=== PATIENT | male | born 1980 | race Caucasian/White ===

== ENCOUNTER 2023-06-02 15:51 | Emergency (ER) | payer MEDICAID, SELFPAY ==
[2023-06-02 16:02] VITALS: BP 132/70; PULSE 74; O2SAT 97
[2023-06-02 16:10] VITALS: BP 104/48; PULSE 62; RESP 14; TEMP 35.9; O2SAT 95; BMI 41.1
--- NOTE | 2023-06-02 17:26 | ED_ITS ---
HPI - General Adult General Chief complaint: Back Pain/Injury Stated complaint: LOWER BACK PAIN AND KNEE PAIN Time Seen by Provider: 06/02/23 17:01 Source: patient Mode of arrival: EMS Limitations: no limitations History of Present Illness HPI narrative: patient homeless unable to sleep for last 4 days was found sitting on the sidewalk on the side of the road when EMS came complaining of back pain knee pain repeatedly nodding off with pinpoint pupil patient denies any substance abuse Related Data Allergies Allergy/AdvReac Type Severity Reaction Status Date / Time No Known Allergies Allergy Verified 06/02/23 17:51 Review of Systems Review of Systems: Yes all other systems are reviewed and are negative [facility] Social History Social History Advance Directives: No Advance Directives Information Provided: No Physical Exam ED Vital Signs: Vital Signs - 24 hr 06/02/23 16:10 06/02/23 20:26 06/02/23 23:57 Temperature 96.7 F L 98.7 F Pulse Rate 62 71 Respiratory Rate 14 19 18 Blood Pressure 104/48 L 113/60 Pulse Oximetry 95 96 Oxygen Delivery Method Room Air Room Air BMI result Body Mass Index 41.1 Appearance: Alert. Oriented X3. No acute distress. Eyes: PERRLA, No Nystagmus ENT: Pharynx normal. Oral Mucosa moist Neck: Normal inspection. Neck supple. CVS: Normal heart rate and rhythm. Pulses normal. Respiratory: No respiratory distress. Equal air entry bilateral, no wheezing/rales/rhonchi Abdomen: Soft and nontender. Bowel sounds are present, no mass palpable, no CVA tenderness Skin: Skin warm and dry. Normal skin color. Normal skin turgor. Extremities: No lower extremity edema. No calf tenderness Neuro: Oriented X 3. No motor deficit. No sensory deficit.No cerebellar signs , cranial nerves II-XII intact Medical Decision Making Medical Decision Making MDM Narrative: Patient medically stable slept for few hours at food in the ER, patient home/are Discharge Plan Discharge Clinical Impression: Homeless Patient Disposition: Home, Self-Care Instructions: Weakness (ED) Additional Instructions: drink plenty of fluids eat well Interventions: ED Discharge Assessment Last Done: 06/03/23 00:40 Discharge Date/Time: 06/03/23 00:41
[2023-06-02 20:26] VITALS: BP 113/60; PULSE 71; RESP 19; TEMP 37.1; O2SAT 96
--- OUTSIDE RECORDS SUMMARY | 2023-06-02 20:39 | XMS_ITS | Continuity of Care Document ---
Author Name Unknown Organization [facility] Address [address] [place] [address]- Care Team Providers Care Wheel Inspector Name Role Phone Not on Staff, PCP Primary Care Physician Unavail able Encounter [facility] Date(s): 05/22/23 - 05/22/[address] [address]- Discharge Disposition: A-D/C Home Attending Physician: Mason David MD Admitting Physician: Mason David MD Referring Physician: Not on Staff, Referring MD Allergies, Adverse Reactions, Alerts No Known Allergies Medications gabapentin 400 mg oral capsule 400 mg, 1, capsule, By Mouth, 3 times a day, # 15 capsule, Refills 0, Maintenance, 05/20/23 12:28:00 EDT, Partial fill upon patient request if the prescription is for a schedule II opioid drug. Start Date: 05/20/23 Status: Ordered gabapentin 400 mg oral capsule 400 mg, 1, capsule, By Mouth, 3 times a day, # 42 capsule, Refills 0, Tot. Refills 0, Maintenance, 05/20/23 17:05:00 EDT, Print Requisition, Partial fill upon patient request if the prescription is for a schedule II opioid drug. Start Date: 05/20/23 Stop Date: 06/03/23 Status: Ordered Methadone = 110 mg, Pt gets this at [facility], [facility], 0 Refills, Maintenance, 05/20/23 12:25:00EDT, Partial fill upon patient request if the prescription is for a schedule II opioid drug. Start Date: 05/20/23 Status: Ordered Trileptal 300 mg oral tablet 300 mg, 1, tablet, By Mouth, 2 times a day, # 60 tablet, Refills 5, Maintenance, 05/20/23 12:27:00 EDT, Partial fill upon patient request if the prescription is for a schedule II opioid drug. Start Date: 05/20/23 Status: Ordered Valium 10 mg oral tablet 10 mg, 1, tablet, By Mouth, 2 times a day, PRN, for 3 days, # 6 tablet, Refills 0, Tot. Refills 0, Acute 05/23/23 17:11:00 EDT, for anxiety, 05/20/23 17:11:00 EDT, Print Requisition, Partial fill upon patient request if the prescription is for a sched... Start Date: 05/20/23 Stop Date: 05/23/23 Status: Ordered Wellbutrin SR 150 mg/12 hours oral tablet, extended release 1 tablet = 150 mg, By Mouth, Daily, take with 300 mg wellbtrin, # 180 tablet, 0 Refills, Maintenance, 05/20/23 12:27:00 EDT, ER Tablet, Partial fill upon patient request if the prescription is for a schedule II opioid drug. Start Date: 05/20/23 Status: Ordered Wellbutrin XL 300 mg/24 hours oral tablet, extended release 1 tablet = 300 mg, By Mouth, Every 24 hours, take with 150 mg wellbutrin, 0 Refills, Maintenance, 05/20/23 12:26:00 EDT, Partial fill upon patient request if the prescription is for a schedule II opioid drug. Start Date: 05/20/23 Status: Ordered Problem List Condition Confirmation Course Effective Dates Status Health St atus Informant Obese class I Confirmed Active Vital Signs Most recent to oldest [Reference Range]: 1 2 Height 168 cm (05/22/23 4:07 AM) 168 cm (05/22/23 4:04 AM) Weight 90.5 kg (05/22/23 4:07 AM) 90.5 kg (05/22/23 4:04 AM) Oxygen Saturation [94-100 %] 99 % (05/22/23 11:22 AM) 97 % (05/22/23 4:04 AM) Pulse Rate [55-90 bpm] 73 bpm (05/22/23 11:22 AM) 73 bpm (05/22/23 4:04 AM) Body Mass Index [18.5-24.99 kg/m2] 32.06 kg/m2 *>HHI* (05/22/23 4:04 AM) Blood Pressure [90-138/55-84 mm Hg] 143/ 87mm Hg *H* (05/22/23 11:22 AM) 111/77mm Hg (05/22/23 4:04 AM) Respiratory Rate [16-30 br/min] 24 br/mi n (05/22/23 11:22 AM) 20 br/min (05/22/23 4:04 AM) Temperature [96.8-100.4 DegF] 97.3 DegF (05/22/23 11:22 AM) 98.8 DegF (05/22/23 4:04 AM) Mode of Delivery (Oxygen) Room air (05/22/23 11:22 AM) Room air (05/22/23 4:04 AM) Blood pressure sites Arm, left (05/22/23:22 AM) Arm, left (05/22/23 4:04 AM) Temperature Route Temporal (05/22/23 11:22 AM) Temporal (05/22/23 4:04 AM) Dry Weight 90.5 kg (05/22/23 4:07 AM) 90.5 kg (05/22/23 4:04 AM) Dry Weight Obtained Via Patient/family s tated (05/22/23 4:04 AM) Note * Mason David MD: PERFORM, SIGN, VERIFY Event Display: Patient Education Handout Authored Date: [id number] * Mason David MD: PERFORM Event Display: Patient Education Leaflets Authored Date: [id number] Degenerative Disk Disease ?? [id number] Degenerative Disk Disease Spinal disks are gel-filled cushions between the bones, or vertebrae, of the spine. The disks act like shock absorbers. Over time, the disks may break down. This is called degenerative disk disease. This condition can affect the neck or back. It is one of the most common causes of low back pain. The pain often remains localized to the lower back or neck. Muscle spasm is often present and adds tothe pain. Disk degeneration is a natural part of aging. But it is not always painful. It may also occur as a result of repeated minor injuries from daily activities, sports, or accidents. It may also run in families. It may lead to osteoarthritis of the spine. Back pain related to disk disease may come and go. Or it may become chronic and last for months or years. The disk may bulge or rupture. This is called a slipped disk or herniated disk. That can put pressure on a nearby spinal nerve and cause neck or back pain that spreads down one arm or leg. X-rays, CT scan, or an MRI scan may help to diagnose this condition. For acute pain, treatment includes anti-inflammatory medicines, muscle relaxants, rest, ice, or heat. Strong prescription pain medicines, called opioids, may be needed for short-term treatment if pain suddenly gets worse. Opioid medicines can be addictive. So they are not advised for long-term pain management. Non-addictive types of medicines are preferred. Surgery is generally not used to treat this condition unless there is a complication. Home care ??? For neck pain:??Use a comfortable pillow that supports the head and keeps the spine in a neutral position. Your head should not be tilted forward or backward. ??? For back pain: Don't sit for long periods of time. This puts more stress on the lower back than standing or walking.??Starting a regular exercise program to strengthen the supporting muscles of the spine will make it easier to live with degenerative disk disease. ??? Apply an ice pack over the injured area for no more than 15 to 20 minutes. Do this every??3 to 6??hours??for the first??24 to 48 hours.??To make an ice pack, put ice cubes in a plastic??bag that seals at the top. Wrap the bag in a??clean, thin??towel or c loth. Never put ice or an ice pack directly on the skin. Keep using ice packs to ease pain and swelling as needed. After 48 hours, apply heat??(warm shower or warm bath)??for 20 minutes several timesa day, or switch between ice and heat. ??? You may use??[id number] pain medicine??to control pain unless another pain medicine was prescribed. If you have chronic liver or kidney disease or have ever had a stomach ulcer or GI bleeding, talk with your provider before using these medicines. ?? Follow-up care Follow up with your healthcare provider as directed. If X-rays, a CT scan, or an MRI scan were done, you will be notified of any new findings that may affect your care. ?? When to seek medical advice Contact your healthcare provider right away if any of these occur: ??? Increasing back or neck pain??? Your foot drags when you walk, a condition called foot drop ??? You have new weakness, numbness, or pain in one or both arms or legs ??? Loss of bowel or bladder control ??? Numbness or tingling in the buttock or groin area ?? Last Reviewed Date: 2021 ?? [employer]. All rights reserved. This information is not intended as a substitute for professional medical care. Always follow your healthcare professional's instructions. ?? * Mason David MD: PERFORM Event Display: Patient Education Leaflets Authored Date: [id number] Lumbar Degenerative Disk Disease ?? Lumbar Degenerative Disk Disease - Video Most vertebrae are by flexible disks of cartilage that act like shock absorbers and allowyour spine to move. With age, your disks can lose their height and ability to cushion. This processis called disk degeneration. This video explains more about this condition and the treatments available. To view the video go to this web address: [email or web address] Or, scan this QR code with your smart phone Last Reviewed Date: 2021 ?? [id number] [employer]. All rights reserved. This information is not intended as a substitute for professional medical care. Always follow your healthcare professional's instructions. ?? Patient Care team information Care Team Personnel Name: Not on Staff, PCP Position: [facility] Physician (General Medicine) Member Role: PCP Name: Mason David MD Position: [facility] ED Medicine MD Member Role: Admitting Physician Address: Address: [address] [place] [address] [place] [address]- Name: Ramon Hawkins RN Position: [facility] ED RN W/OE and Tasks Member Role: Patient Care Provider
--- OUTSIDE RECORDS SUMMARY | 2023-06-02 20:40 | XMS_ITS | Continuity of Care Document ---
Author Name [facility] Address [address] [place] [address] Organization [facility] Address [address] [place] [address] Support Name Relationship Address Phone [place] Jacobson Emergency Provider [facility]EL [facility]UL[facility] [place] [address] Unavailable Pcp-None, Primary Care Provider Unknown Jim lee Pcp-None, Family Provider Unknown Unavailable Allergies, Adverse Reactions, Alerts No known allergies. Medications Active Medications Medication Dose Units Route Sig Qty Days Start Date St atus Folic Acid [Folate] 1 MG PO DAILY March 05, 2019 Active Multivitamin 1 TAB PO DAILY March 05, 2019 Active Thiamine [Vitamin B1] 100 MG PO DAILY 2018 Active Clindamycin [Cleocin] 600 MG PO THREE TIMES A DAY 60 March 05, 2019 Active Ibuprofen [Motrin] 600 MG PO THREE TIMES A DAY PRN For Pain March 05, 2019 Active Problem List Active Problems Medical Problem Onset Date Status Substance abuse Active Morbid obesity Active Alcoholic intoxication Active Psoriatic arthritis Active Cellulitis Active Psoriasis Active Tachycardia Active Viral infection Active Agitation Active Bipolar 1 disorder Active Multiple abrasions Active GERD (gastroesophageal reflux disease) Active Multiple contusions Active HTN (hypertension) Active Inactive/Resolved Problems Medical Problem Onset Date Status Acute kidney injury Resolved Toxic metabolic encephalopathy R esolved Alcoholic intoxication Inactive Rhabdomyolysis Resolved Viral syndrome Inactive Procedures Procedure Date Status Group A Streptococcus Rapid Screen January 03, 2020 active XR chest 2V January 03, 2020 active Group A Streptococcus DNA Detection January [address] cervical spine wo con December 23, [address] head/brain wo con December 23, 2019 completed Relevant Diagnostic Tests and/or Laboratory Data Laboratory Results Test Date/Time Result Interp. Ref. Range Result Co mment White Blood Count December 23, 2019 11:10pm 11.4 X10 3/uL High 4.5-11.0 Red Blood Count December 23, 2019 11:10pm 4.74 X10 6/uL 4.00-5.50 Hemoglobin December 23, 2019 11:10pm 15.1 g/dl 13.0-17.0 Hematocrit December 23, 2019 11:10pm 42.7 % 37.5-50.0 Mean Corpuscular Volume December 23, 2019 11:10pm 90.1 fl 80.0-100.0 Mean Corpuscular Hemoglobin December 23, 2019 11:10pm 31.9 pg 27.0-34.0 Mean Corpuscular Hemoglobin Concent December 23, 2019 11:10pm 35.4 g/dl 31.0-36.0 Red Cell Distribution Width December 23, 2019 11:10pm 12.5 % 11.5-15.0 Platelet Count December 23, 2019 11:10pm 242 X10 3/uL 150-400 Neutrophils (%) (Auto) December 23, 2019 11:10pm 60.3 % Lymphocytes (%) (Auto) December 23, 2019 11:10pm 28.8 % Monocytes (%) (Auto) December 23, 2019 11:10pm 6.6 % Eosinophils (%) (Auto) December 23, 2019 11:10pm 3.2 % Basophils (%) (Auto) December 23, 2019 11:10pm 1.1 % Neutrophils # (Auto) December 23, 2019 11:10pm 6.9 X10 3/uL 1.5-7.8 Lymphocytes # (Auto) December 23, 2019 11:10pm 3.3 X10 3/uL 1.0-4.8 Monocytes # (Auto) December 23, 2019 11:10pm 0.8 X10 3/uL 0.0-0.8 Eosinophils # (Auto) December 23, 2019 11:10pm 0.4 X10 3/uL 0.0-0.5 Basophils # (Auto) December 23, 2019 11:10pm 0.1 X10 3/uL 0.0-0.2 Sodium Level December 23, 2019 11:10pm 138 mmol/L 137-146 Potassium Level December 23, 2019 11:10pm 4.5 mmol/L 3.5-5.3 Gross hemolysis, please redraw specimen Chloride Level December 23, 2019 11:10pm 104 mmol/L 98-107 Carbon Dioxide Level December 23, 2019 11:10pm 20 mmol/L Low 23-32 Blood Urea Nitrogen December 23, 2019 11:10pm 14 mg/dl 5-25 Creatinine December 23, 2019 11:10pm 0.7 mg/dL 0.6-1.4 Estimated Creatinine Clearance December 23, 2019 11:10pm Loan Originator Unable to Calculate CRCL,Ht and/or Wt missing Estimated GFR () December 23, 2019 11:10pm > 60 60- Estimated GFR (Non- December 23, 2019 11:10pm > 60 60- BUN/Creatinine Ratio December 23, 2019 11:10pm 20.0 10.0-20.0 Glucose Level December 23, 2019 11:10pm 96 mg/dL 70-100 Calcium Level December 23, 2019 11:10pm 9.0 mg/dl 8.6-10.3 Total Bilirubin December 23, 2019 11:10pm < 0.2 mg/dl Aspartate Amino Transf (AST/SGOT) December 23, 2019 11:10pm 35 U/L 15-41 Specimen hemolyzed, results affected, evaluate with caution. Alanine Aminotransferase (ALT/SGPT) December 23, 2019 11:10pm 11 U/L Low 14-63 Total Protein December 23, 2019 11:10pm 7.1 g/dL 6.4-8.3 Albumin December 23, 2019 11:10pm 4.4 g/dl 4.0-5.0 Albumin/Globulin Ratio December 23, 2019 11:10pm 1.6 1.0-2.6 Alkaline Phosphatase December 23, 2019 11:10pm 89 U/L 40-129 Gross hemolysis, evaluate with caution Salicylates Level December 23, 2019 11:10pm < 1.0 mg/dL Salicylate Reference Range: Negative <1.0 mg/dL Therapeutic Range: 2.0-20.0 mg/dL Acetaminophen Level December 23, 2019 11:10pm < 5 ug/mL Acetaminophen Reference Range: Negative <5 ug/mL Serum Alcohol December 23, 2019 11:10pm 157 mg/dl High Gross hemolysis, evaluate with caution Microbiology Results Procedure Source Result Collection Date/Time Resu lt Date/Time Group A Streptococcus DNA Detection Throat No results entered January 03, 2020 10:00pm Advance Directives Advance Directive Response Recorded Date/ Time Advance Directives No January 04, 2020 2:27am Health Care Proxy No January 04, 2020 2:27am Pt has Medical Orders for Li fe Sustaining Tx Form (MOLST)? No December 23, 2019 8:27pm Chief Complaint and Reason for Visit Encounter Admit Date Chief Complaint Reason for V isit Departed Emergency January 03, 2020 9:26pm fever Hospital Discharge Instructions No known hospital discharge instructions. Hospital Discharge Medications Medication Dose Units Route Sig Qty Days Order Date Status Ins tructions Folic Acid 1 MG PO DAILY March 05, 2019 Active Multivitamin 1 TAB PO DAILY March 05, 2019 Active Thiamine 100 MG PO DAILY March 05, 2019 Active Clindamycin 600 MG PO THREE TIMES A DAY 60 March 05, 2019 Active Ibuprofen 600 MG PO THREE TIMES A DAY PRN For Pain 14 March 05, 2019 Active Encounters Encounter Facility Location Admit/Visit Date Discharge/Departure Date Attending Provider Departed Emergency [facility] Emergency January 03, 2020 9:26pm January 03, 2020 11:47pm Departed Emergency [facility] December 23, 2019 8:25pm December 24, 2019 6:45am Functional Status No known functional status. Immunizations Immunization Name Date Given Type Tetanus, Diphtheria, Pertussis (Tdap) March 03 9 Administered Payers Payer Name Policy Type Covered Democrat Covered Democrat Id Relationship Subscriber Subscriber Id BC [id number] Commercial [id number] [facility] (Medicaid) Commercial Chris Landers [id number] Self / Same As Patient Chris Landers [id number] Self Pay Personal Payment (Momin - No Insurance) Plan of Care No Known Plan of Care Information Social History Query Response Date Recorded Comment Lives With Alone December 23, 2019 8:25pm Living Situation Private Home January 04, 2020 3:29am Query Response Start Date Stop Date Smoking Status Current every day smoker Vital Signs Vital Reading Result Reference Range Collection Date/Time Height 1.68 m January 04, 2020 2 :38am Weight 95.254 kg January 04, 2020 2 :38am Temperature 98.9 F 97.6 F-99.6 F January 03, 2020 11:44pm Pulse 110 BPM 60-90 January 03, 2020 9 :38pm Respiration 20 RPM 12-24 January 03, 2020 9 :38pm Pulse Oximetry 100 % 95-100 January 03, 2020 9:38pm Blood Pressure Systolic 140 90-[address] [facility] 2019 9:38pm Blood Pressure Diastolic 75 60-90 [facility] 2019 9:38pm Body Mass Index 33.9 January 03 0 2:38am
--- OUTSIDE RECORDS SUMMARY | 2023-06-02 20:40 | XMS_ITS | Continuity of Care Document ---
Author Name Unknown Organization [facility] Address [address] [place] [address]- Care Team Providers Care Rda Name Role Phone Not on Staff, PCP Primary Care Physician Unavail able [place] [facility] [place] [facility] [address] [place] [address]- Encounter Diagnosis Lumbar back pain(Final) - 05/20/23 Lumbar disc disease with radiculopathy(Final) - 05/20/23 Bulging lumbar disc(Final) - 05/20/23 Discharge Disposition: A-D/C Home Attending Physician: Micheal Menard DO Admitting Physician: Micheal Menard DO Referring Physician: Not on Staff, Referring MD [...] gabapentin 400 mg oral capsule 400 mg, Capsule, By Mouth, Once, Routine, 05/20/23 15:00:00 EDT, Stop date 05/20/23 15:00:00 EDT Start Date: 05/20/23 Stop Date: 05/20/23 Status: Completed gabapentin 400 mg oral capsule 400 mg, 1, capsule, By Mouth, 3 times a day, # 42 capsule, Refills 0, Tot. Refills 0, Maintenance, 05/20/23 17:05:00 EDT, Print Requisition, Partial fill upon patient request if the prescription is for a schedule II opioid drug. Start Date: 05/20/23 Stop Date: 06/03/23 Status: Ordered Methadone = 110 mg, Pt gets this at [facility], 0 Refills, Maintenance, 05/20/23 12:25:00EDT, Partial fill [...] opioid drug. Start Date: 05/20/23 Status: Ordered Vital Signs Most recent to oldest [Reference Range]: 1 2 3 Height 167 cm (05/20/23 12:15 PM) Weight 106.8 kg (05/20/23 12:15 PM) Oxygen Saturation [94-100 %] 97 % (05/20/23 3:00 PM) 96 % (05/20/23 12:15 PM) Pulse Rate [55-90 bpm] 82 bpm (05/20/23 3:00 PM) 85 bpm (05/20/23 12:15 PM) Blood Pressure [90-138/55-84 mm Hg] 115/70mm Hg (05/20/23 3:00 PM) 119/71mm Hg (05/20/23 12:15 PM) Respiratory Rate [16-30 br/min] 17 br/min (05/20/23 3:19 PM) 16 br/min (05/20/23 2:19 PM) 18 br/min (05/20/23 12:15 PM) Temperature [96.8-100.4 DegF] 98.2 DegF (05/20/23 12:15 PM) Mode of Delivery (Oxygen) Room air (05/20/23 3:00 PM) Room air (05/20/23 12:15 PM) Blood pressure sites Arm, left (05/20/23 3:00 PM) Temperature Route Oral (05/20/23 12:15 PM) Dry Weight 106.8 kg (05/20/23 12:15 PM) Weight Obtained Via Standing scale (05/20/23 12:15 PM) Note * Micheal Menard DO: PERFORM Event Display: Patient Education Leaflets Authored Date: [id number] Back Pain (Acute or Chronic) ?? [id number] Back Pain (Acute or Chronic) Back pain is one of the most common problems. The good news is that most people feel better in 1 to2 weeks, and most of the rest in 1 to 2 months. Most people can remain active. People who have pain??describe it differently???not??everyone is the same. ??? The pain can be sharp, stabbing, shooting, aching, cramping or burning. ??? Movement, standing,bending, lifting, sitting, or walking may worsen pain. ??? It can be limited to one spot or area, or it can be more generalized. ??? It can spread upwards, to the front, or go down your arms or legs (sciatica). ??? It can cause muscle spasm. Most of the time, mechanical problems with the muscles??or spine cause the pain. Mechanical problems??are usually caused by an injury to the muscles or ligaments. Illness can cause back pain, but it's usually not caused by a serious illness. Mechanical problems include:? Physical activity such as sports, exercise, work, or normal activity ??? Overexertion, lifting,pushing, pulling incorrectly or too aggressively ??? Sudden twisting, bending, or stretching from an accident, or accidental movement ??? Poor posture ??? Stretching or moving wrong, without noticingpain at the time ??? Poor coordination, lack of regular exercise (check with your doctor about this) ??? Spinal disc disease or arthritis ??? Stress Pain can also be related to , or illness such as appendicitis, bladder or kidney infections, kidney stones, and pelvic infections. Acute back pain usually gets better in??1 to 2 weeks. Back pain related to disk disease, arthritis in the spinal joints, or narrowing of the spinal canal (spinal stenosis) can become chronic and lastfor months or years. Unless you had a physical injury such as a car accident or fall, X-rays are usually not needed for the first assessment of back pain. If pain continues and does not respond to medical treatment, you may need X-rays and other tests. Home care Try this home care advice: ??? When in bed, try??to find a position of comfort. A firm mattress is best. Try lying flat on your back with pillows under your knees. You can also try lying on your side with your knees bent up toward your chest and a pillow between your knees. ??? At first, don't try to stretch out the sore spots. If there is a strain, it's not like the good soreness you get after exercising without an injury. In this case, stretching may make it worse. ??? Don't sit for long periods, as in a long car ride or during other??travel. This puts more stress on the lower back than standing or walking. ??? During the first 24 to 72 hours after an acute injury or flare up of chronic back pain, apply an ice pack to the painful area for 20 minutes and then remove it for 20 minutes. Do this over a period of 60 to 90 minutes or several times a day. This will reduce swelling and pain. Wrap the ice pack in a thintowel or plastic to protect your skin. ??? You can start with ice, then switch to heat. Heat (hot shower, hot bath, or heating pad) reduces pain and works well for muscle spasms. Heat can be applied to the painful area for 20 minutes then remove it for 20 minutes. Do this over a period of 60 to 90 minutes or several times a day. Don't sleep on a heating pad. It can lead to skin whitt or tissue damage. ??? You can alternate ice and heat therapy. Talk with your doctor about??the best treatment for your back pain. ??? Therapeutic massage can help relax the back muscles without stretching them. ??? Be aware of safe lifting methods. Don't lift anything without stretching first. Medicines Talk to your doctor before using medicine, especially if you have other medical problems or are taking other medicines. ??? You may use etew-vmt-[id number] medicine as directed on the bottle to control pain, unless another pain medicine was prescribed. Talk with your healthcare provider before using these medicines if you have chronic conditions such as diabetes, liver or kidney disease, stomach ulcers, or digestive bleeding. Also talk with your provider if you take blood thinners. ??? Be careful if you are given a prescription medicines, narcotics, or medicine for muscle spasms. They can cause drowsiness, affect your coordination, reflexes, and judgment. Don't drive or operate heavy machinery. ?? Follow-up care Follow up with your healthcare provider, or as advised.?? If X-rays were taken, you will be told of any new findings that may affect your care. ?? Call 911 Call 911 if any of the following occur: ??? Trouble breathing ??? Confusion ??? Very drowsy or trouble awakening ??? Fainting or loss of consciousness ??? Rapid or very slow heart rate ??? Loss of bowel or bladder control ?? When to seek medical advice Call your healthcare provider right away if any of these occur:? Pain gets worse or spreads toyour legs ??? Your bowel or bladder control changes ??? Fever ??? Blood in your urine ??? Weakness or numbness in one or both legs ??? Numbness in the groin or genital area ?? Last Reviewed Date: 2021 ?? [id number] [employer]. All rights reserved. This information is not intended as a substitute for professional medical care. Always follow your healthcare professional's instructions. ?? * Roxanna Kin DO, Micheal: PERFORM Event Display: Patient Education Leaflets Authored Date: [id number] Degenerative Disk Disease ?? [id number] Degenerative Disk Disease Spinal disks are gel-filled [...] between ice and heat. ??? You may use??govn-oev-ztegmqd pain medicine??to control pain unless another pain [...] area ?? Last Reviewed Date: 2021 ?? 9014-2859 [employer]. All rights reserved. This information is not intended as a substitute for professional medical care. Always follow your healthcare professional's instructions. ?? Patient Care team information Care Team Personnel Name: Not on Staff, PCP Position: [facility] Physician (General Medicine) Member Role: PCP Name: Micheal Menard DO Position: [facility] ED Medicine MD Member Role: Admitting Physician Address: Address: [address] [place] [address] [place], [place] [address] Name: Megan Alvarez RN Position: [facility] ED RN W/OE and Tasks Member Role: Patient Care Provider
--- OUTSIDE RECORDS SUMMARY | 2023-06-02 20:40 | XMS_ITS | Continuity of Care Document ---
Author Name [facility] Address [address] [place] [address] Organization [facility] Address [address] [place] [address] Care Team Providers Care First Aid Officer Name Role Phone Pcp-Noam, Primary Care Provider Mason Ureña Emergency Provider [phone] Allergies, Adverse Reactions, Alerts No known allergies. Medications Active Medications Medication Dose Units Route Sig Qty Days Start Date St atus Buprenorphine/Naloxone 8/2mg [Suboxone 8 Mg-2 Mg Sl Film] 1 FILM SL TWICE A DAY February 13, 2020 Acti ve Discontinued Medications Medication Dose Units Route Sig Qty Days Start Date Discontinued Date Status Folic Acid [Folate] 1 MG PO DAILY 21 March 05, 2019 February 13, 2020 Discontinued Multivitamin 1 TAB PO DAILY 21 March 05, 2019 February 13, 2020 Discontinued Thiamine [Vitamin B1] 100 MG PO DAILY 21 March 05, 2019 February 13, 2020 Discontinued Clindamycin [Cleocin] 600 MG PO THREE TIMES A DAY 60 5 March 05, 2019 February 13, 2020 Discontinued Ibuprofen [Motrin] 600 MG PO THREE TIMES A DAY PRN For Pain 14 March 05, 2019 February 13, 2020 Discontinued Problem List Active Problems Medical Problem Onset Date Status Substance abuse Active Morbid obesity Active Psoriatic arthritis Active Cellulitis Active Psoriasis Active Tachycardia Active Allergic reaction Active Agitation Active Bipolar 1 disorder Active Multiple abrasions Active GERD (gastroesophageal reflux disease) Active Multiple contusions Active HTN (hypertension) Active Inactive/Resolved Problems Medical Problem Onset Date Status Acute kidney injury Resolved Cellulitis of right leg Inactive Toxic metabolic encephalopathy R esolved Alcoholic intoxication Inactive Alcoholic intoxication Inactive Rhabdomyolysis Resolved Viral infection Inactive Viral syndrome Inactive Paranoid delusion Inactive Polysubstance abuse Inactive Procedures No known history of procedures. Relevant Diagnostic Tests and/or Laboratory Data No known relevant diagnostic tests, laboratory data, and/or discharge summary. Advance Directives Advance Directive Response Recorded Date/ Time Advance Directives No June 10 8:34am Health Care Proxy No June 10 0 8:34am Hospital Discharge Instructions No known hospital discharge instructions. Hospital Discharge Medications Medication Dose Units Route Sig Qty Days Order Date Status Instructions Folic Acid 1 MG PO DAILY February Discontinued Multivitamin 1 TAB PO DAILY March 05, 2019 Discontinued Thiamine 100 MG PO DAILY March 05, 2019 Discontinued Clindamycin 600 MG PO THREE TIMES A DAY 60 5 March 05, 2019 Discontinued Ibuprofen 600 MG PO THREE TIMES A DAY PRN For Pain 14 March 05, 2019 Discontinued Buprenorphine/Na loxone 8/2mg 1 FILM SL TWICE A DAY February 13, 2020 Active Encounters Encounter Facility Location Admit/Visit Date Discharge/Departure Date Attending Provider Departed Emergency [facility] June 10, 2020 8:34am June 10, 2020 12:46pm Functional Status No known functional status. Immunizations Immunization Name Date Given Type Tetanus, Diphtheria, Pertussis (Tdap) March 03 9 Administered Plan of Care Instructions ED Allergic Reaction General Other Social History Query Response Start Date Stop Date Smoking Status Current every day smoker Vital Signs Vital Reading Result Reference Range Collection Date/Time Height 1.68 m June 10, 2020 9:03am Weight 90.718 kg June 10, 2020 9:03am Temperature 98.0 F 97.6 F-99.6 F June 10 0 9:05am Pulse 68 BPM 60-90 June 10, 2020 11:52am Respiration 16 RPM 12-24 June 10, 2020 11:52am Pulse Oximetry 99 % 95-100 June 10 11:52am Blood Pressure Systolic 108 90-[address] [facility] 11:52am Blood Pressure Diastolic 62 60-90 May t 2019 11:52am Body Mass Index 32.3 June 10 020 9:03am
--- OUTSIDE RECORDS SUMMARY | 2023-06-02 20:40 | XMS_ITS | Continuity of Care Document ---
Author Name [facility] Address [address] [place] [address] [facility] Address [address] [place] [address] Support Name Relationship Address Phone Pcp-None, Primary Care Provider Unknown Jim lee Pcp-None, Family Provider Unknown Unavailable James Smith Emergency Provider [address] [facility] Dept[address] of emergency Medicine [place], [place] [id number] Allergies, Adverse Reactions, Alerts No known allergies. Medications Active Medications Medication Dose Units Route Sig Qty Days Start Date St atus Folic Acid [Folate] 1 MG PO DAILY 21 March 05, 2019 Active Multivitamin 1 TAB PO DAILY 21 March 05, 2019 Active Thiamine [Vitamin B1] [...] Tachycardia Active Viral infection Active Agitation Active Paranoid delusion Active Bipolar 1 disorder Active Multiple abrasions Active Polysubstance abuse Active GERD (gastroesophageal reflux disease) Active Multiple contusions Active HTN (hypertension) Active Inactive/Resolved Problems Medical Problem Onset Date Status Acute kidney injury Resolved Toxic metabolic encephalopathy R esolved Alcoholic intoxication Inactive Alcoholic intoxication Inactive Rhabdomyolysis Resolved Viral syndrome Inactive Procedures Procedure Date Status Group A Streptococcus Rapid Screen January 03, 2020 active XR chest 2V January 03, 2020 completed Group A Streptococcus DNA Detection January [address] cervical spine wo con December 23, [address] head/brain wo con December 23, 2019 completed Relevant Diagnostic Tests and/or Laboratory Data Laboratory Results Test Date/Time Result Interp. Ref. Range Result Co mment White Blood Count January 13, 2020 4:25pm 7.8 X10 3/uL 4.5-11.0 Red Blood Count January 13, 2020 4:25pm 4.21 X10 6/uL 4.00-5.50 Hemoglobin January 13, 2020 4:25pm 12.9 g/dl Low 13.0-17.0 Hematocrit January 13, 2020 4:25pm 37.2 % Low 37.5-50.0 Mean Corpuscular Volume January 13, 2020 4:25pm 88.4 fl 80.0-100.0 Mean Corpuscular Hemoglobin January 13, 2020 4:25pm 30.6 pg 27.0-34.0 Mean Corpuscular Hemoglobin Concent January 13, 2020 4:25pm 34.7 g/dl 31.0-36.0 Red Cell Distribution Width January 13, 2020 4:25pm 12.6 % 11.5-15.0 Platelet Count January 13, 2020 4:25pm 283 X10 3/uL 150-400 Neutrophils (%) (Auto) January 13, 2020 4:25pm 60.9 % Lymphocytes (%) (Auto) January 13, 2020 4:25pm 27.2 % Monocytes (%) (Auto) January 13, 2020 4:25pm 9.3 % Eosinophils (%) (Auto) January 13, 2020 4:25pm 2.3 % Basophils (%) (Auto) January 13, 2020 4:25pm 0.3 % Neutrophils # (Auto) January 13, 2020 4:25pm 4.8 X10 3/uL 1.5-7.8 Lymphocytes # (Auto) January 13, 2020 4:25pm 2.1 X10 3/uL 1.0-4.8 Monocytes # (Auto) January 13, 2020 4:25pm 0.7 X10 3/uL 0.0-0.8 Eosinophils # (Auto) January 13, 2020 4:25pm 0.2 X10 3/uL 0.0-0.5 Basophils # (Auto) January 13, 2020 4:25pm 0.0 X10 3/uL 0.0-0.2 Urine Color January 13, 2020 5:55pm Yellow Urine Clarity January 13, 2020 5:55pm Clear Urine pH January 13, 2020 5:55pm 5.0 5.0-8.0 Urine Specific [place] January 13, 2020 5:55pm 1.001 Low 1.003-1.03 0 Urine Blood January 13, 2020 5:55pm Negative mg/dl Urine Protein January 13, 2020 5:55pm Negative mg/dl Urine Glucose (UA) January 13, 2020 5:55pm Negative mg/dl Urine Ketones January 13, 2020 5:55pm Negative mg/dl Urine Nitrate January 13, 2020 5:55pm Negative Urine Bilirubin January 13, 2020 5:55pm Negative mg/dl Urine Urobilinogen January 13, 2020 5:55pm Normal mg/dl Urine Leukocyte Esterase January 13, 2020 5:55pm Negative Sodium Level January 13, 2020 4:25pm 136 mmol/L Low 137-146 Potassium Level January 13, 2020 4:25pm 3.3 mmol/L Low 3.5-5.3 Chloride Level January 13, 2020 4:25pm 100 mmol/L 98-107 Carbon Dioxide Level January 13, 2020 4:25pm 24 mmol/L 23-32 Anion Gap January 13, 2020 4:25pm 12 mmol/L 5-15 Blood Urea Nitrogen January 13, 2020 4:25pm 18 mg/dl 5-25 Creatinine January 13, 2020 4:25pm 0.9 mg/dL 0.6-1.4 Estimated Creatinine Clearance January 13, 2020 4:25pm Radiologist Physician Unable to Calcul ate CRCL,Ht and/or Wt missing Estimated GFR () January 13, 2020 4:25pm > 60 60- Estimated GFR (Non- January 13, 2020 4:25pm > 60 60- BUN/Creatinine Ratio January 13, 2020 4:25pm 20.0 10.0-20.0 Glucose Level January 13, 2020 4:25pm 113 mg/dL High 70-100 Calcium Level January 13, 2020 4:25pm 9.7 mg/dl 8.6-10.3 Magnesium Level January 13, 2020 4:25pm 1.9 mg/dL 1.8-2.5 Total Bilirubin January 13, 2020 4:25pm 0.8 mg/dl Aspartate Amino Transf (AST/SGOT) January 13, 2020 4:25pm 27 U/L 15-41 Alanine Aminotransferase (ALT/SGPT) January 13, 2020 4:25pm 25 U/L 14-63 Total Creatine Kinase January 13, 2020 4:25pm 280 U/L 49-397 Total Protein January 13, 2020 4:25pm 7.2 g/dL 6.4-8.3 Albumin January 13, 2020 4:25pm 4.3 g/dl 4.0-5.0 Albumin/Globulin Ratio January 13, 2020 4:25pm 1.5 1.0-2.6 Alkaline Phosphatase January 13, 2020 4:25pm 78 U/L 40-129 Urine Amphetamines Screen January 13, 2020 5:55pm Positive High Confirmation by GC/MS not routinely performed. If confirmation is required, an order must be placed. Amphetamines Cutoff level 1000 ng/mL. Urine Methadone Screen January 13, 2020 5:55pm Negative Methadone Cutoff level 300 ng/mL Urine Oxycodone Screen January 13, 2020 5:55pm Negative Oxycontin/Oxycod one Cutoff level 100 ng/mL Urine Buprenorphine Screen January 13, 2020 5:55pm Negative Buprenorphine Cutoff level 5 ng/mL Salicylates Level January 13, 2020 4:25pm < 1.0 mg/dL Salicylate Reference Range: Negative <1.0 mg/dL Therapeutic Range: 2.0-20.0 mg/dL Urine Opiates Screen January 13, 2020 5:55pm Negative Opiate Cutoff le nemesio 300 ng/mL Oxycontin/Oxycodone is not detected below the threshold of 20,000 ng/mL Urine Fentanyl Screen January 13, 2020 5:55pm Negative Fentanyl Cutoff level 2.0 ng/mL Acetaminophen Level January 13, 2020 4:25pm < 5 ug/mL Acetaminophen Reference Range: Negative <5 ug/mL Urine Benzodiazepines Screen January 13, 2020 5:55pm Negative Please note that the current method for benzodiazepines may be less sensitive to lorazapam detection than previously. If this result is negative and you are concerned about a false negative result for lorazepam, additional testing is possible. Please contact the laboratory. Benzodiazepine Cutoff level 200 ng/mL Urine Cocaine Screen January 13, 2020 5:55pm Negative Cocaine Cutoff level 300 ng/mL Urine Cannabinoids Screen January 13, 2020 5:55pm Negative THC Cutoff level 50 ng/mL This report is intended for use in clinical monitoring and management of patients. It is not intended for use in employment related drug testing or court related proceedings. Samples are not routinely tested for adulteration and are assumed to be within the normal physiological pH range of 5 - 8. Serum Alcohol January 13, 2020 4:25pm < 10 mg/dl Microbiology Results Procedure Source Result Collection Date/Time Resu lt Date/Time Group A Streptococcus DNA Detection Throat No results entered January 03, 2020 10:00pm Advance Directives Advance Directive Response Recorded Date/ Time Advance Directives No January 12 0 7:55pm Health Care Proxy No January 13, 2020 7:55pm Pt has Medical Orders for Li fe Sustaining Tx Form (MOLST)? No December 23, 2019 8:27pm Chief Complaint and Reason for Visit Encounter Admit Date Chief Complaint Reason for V isit Departed Emergency January 13, 2020 3:54pm ?substance ab use Hospital Discharge Instructions No known hospital discharge [...] A DAY 60 5 March 05, 2019 Active Ibuprofen 600 MG PO THREE TIMES A DAY PRN For Pain 14 March 05, 2019 Active Encounters Encounter Facility Location Admit/Visit Date Discharge/Departure Date Attending Provider Departed Emergency [facility] January 13, 2020 3:54pm January 14, 2020 12:10pm Departed Emergency [facility] Emergency January 03, 2020 9:26pm January 03, 2020 11:47pm [facility] Emergency [facility] Emergency [facility] December 23, 2019 8:25pm December 24, 2019 6:45am Functional Status No known functional status. Immunizations Immunization Name Date Given Type Tetanus, Diphtheria, Pertussis (Tdap) March 03 9 Administered Payers Payer Name Policy Type Covered Alliance Party Covered Alliance Party Id Relationship Subscriber Subscriber Id [facility] [employer] Commercial [id number] [facility] HealthNet (Medicaid) Commercial Chris Landers [id number] Self / Same As Patient Chris Landers [id number] Self Pay Personal Payment ([place]omin - No Insurance) Plan of Care No Known Plan of Care Information Social History Query Response Date Recorded Comment Lives With Alone December 23, 2019 8:25pm Living Situation Homeless January 13, 2020 9:12pm Query Response Start Date Stop Date Smoking Status Unknown if ever smoked Vital Signs Vital Reading Result Reference Range Collection Date/Time Height 1.68 m January 04, 2020 2 :38am Weight n/a Temperature 98 F 97.6 F-99.6 F January 13, 2020 9:30pm Pulse 80 BPM 60-90 January 13, 2020 10:33pm Respiration 18 RPM 12-24 January 13, 2020 10:33pm Pulse Oximetry 97 % 95-100 January 12 0 10:33pm Blood Pressure Systolic 124 90-[address] [facility] 2019 10:33pm Blood Pressure Diastolic 62 60-90 [facility] 2019 10:33pm Body Mass Index 33.9 January 03 0 2:38am
--- OUTSIDE RECORDS SUMMARY | 2023-06-02 20:40 | XMS_ITS | Continuity of Care Document ---
Author Name [facility] Address [address] [place] [address] Organization [facility] Address [address] [place] [address] Support Name Relationship Address Phone Pcp-None, Primary Care Provider Unknown Unatyler lee Pcp-None, Family Provider Unknown Unavailable Iker Holguin Emergency Provider Brittanie john / E.RJessie [address] [place] [address] Allergies, Adverse Reactions, Alerts No known allergies. [...] 1 MG PO DAILY March 05, 2019 February 13, 2020 Discontinued [...] DAY PRN For Pain March 05, 2019 February 13, 2020 Discontinued Problem List Active Problems Medical Problem Onset Date Status Cellulitis of right leg Active Substance abuse Active Morbid obesity Active Psoriatic arthritis Active Cellulitis Active Psoriasis Active Tachycardia Active Agitation Active Bipolar 1 disorder Active Multiple abrasions Active GERD (gastroesophageal reflux disease) Active Multiple contusions Active HTN (hypertension) Active Inactive/Resolved Problems Medical Problem Onset Date Status Acute kidney injury Resolved Toxic metabolic encephalopathy R esolved Alcoholic intoxication Inactive Alcoholic intoxication Inactive Rhabdomyolysis Resolved Viral infection Inactive Viral syndrome Inactive Paranoid delusion Inactive Polysubstance abuse Inactive Procedures Procedure Date Status XR tibia fibula RT 2V February 13, 2020 completed NINV Venous duplex scan LE RT February 13, 2020 co mpleted Relevant Diagnostic Tests and/or Laboratory Data No known relevant diagnostic tests, laboratory data, and/or discharge summary. Advance Directives Advance Directive Response Recorded Date/ Time Advance Directives No February 12 0 11:46am Health Care Proxy No February 13, 2020 11:46am Pt has Medical Orders for Li fe Sustaining Tx Form (MOLST)? No December 23, 2019 8:27pm Hospital Discharge Instructions No known hospital discharge instructions. Hospital Discharge Medications Medication Dose Units Route Sig Qty Days Order Date Status Instructions Folic Acid 1 MG PO DAILY February Discontinued Multivitamin 1 TAB PO DAILY 21 March 05, 2019 Discontinued Thiamine 100 MG PO DAILY March 05, 2019 Discontinued Clindamycin 600 MG PO THREE TIMES A DAY 60 March 05, 2019 Discontinued Ibuprofen 600 MG PO THREE TIMES A DAY PRN For Pain March 05, 2019 Discontinued Buprenorphine/Na loxone 8/2mg 1 FILM SL TWICE A DAY February 13, 2020 Active Encounters Encounter Facility Location Admit/Visit Date Discharge/Departure Date Attending Provider Departed Emergency [facility] February 13, 2020 7:42am February 13, 2020 10:41am Departed Emergency [facility] Emergency Dept - [facility] December 23, 2019 8:25pm December 24, 2019 6:45am Functional Status No known functional status. Immunizations Immunization Name Date Given Type Tetanus, Diphtheria, Pertussis (Tdap) March 03 9 Administered Payers Payer Name Policy Type Covered Libertarian Covered Libertarian Id Relationship Subscriber Subscriber Id [facility] [employer] Choice Commercial [id number] [facility]Medicaid) Commercial Chris Landers [id number] Self / Same As Patient Chris Landers [id number] Self Pay Personal Payment ([place]omin - No Insurance) Plan of Care No Known Plan of Care Information Social History Query Response Date Recorded Comment Lives With Family February 13, 2020 7:55am Query Response Start Date Stop Date Smoking Status Current every day smoker Vital Signs Vital Reading Result Reference Range Collection Date/Time Height n/a Weight n/a Temperature 97.3 F 97.6 F-99.6 F February 13, 2020 7:55am Pulse 70 BPM 60-90 February 13, 2020 7:55am Respiration 18 RPM 12-24 February 13, 2020 7:55am Pulse Oximetry 99 % 95-100 February 12 0 7:55am Blood Pressure Systolic 133 90-140 Apri l 2019 7:55am Blood Pressure Diastolic 85 60-90 Apr il 2019 7:55am Body Mass Index n/a
--- OUTSIDE RECORDS SUMMARY | 2023-06-02 20:40 | XMS_ITS | Continuity of Care Document ---
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 Date(s): 05/29/23 - 05/29/[address] [address]- Discharge Disposition: A-D/C Home Attending Physician: Anthony Colin DO Admitting Physician: Anthony Colin DO Referring Physician: Not on Staff, Referring [...] Date: 05/20/23 Stop Date: 06/03/23 Status: Ordered gabapentin 400 mg oral capsule 400 mg, Capsule, By Mouth, Once, Routine, 05/29/23 11:00:00 EDT, Stop date 05/29/23 11:00:00 EDT Start Date: 05/29/23 Stop Date: 05/29/23 Status: Completed Methadone = 110 mg, Pt gets this at [facility], 0 Refills, Maintenance, 05/20/23 12:25:00EDT, Partial fill upon patient request if the prescription is for a schedule II opioid drug. Start Date: 05/20/23 Status: Ordered ondansetron 4 mg oral tablet 1 tablet = 4 mg, By Mouth, 3 times a day, PRN Nausea & Vomiting, # 12 tablet, 0 Refills, Maintenance, 05/29/23 3:18:00 EDT, Tablet, [id number], Partial fill upon patient request if the prescription is for a schedule II opioid drug., 168, cm, 0... Start Date: 05/29/23 Status: Ordered Trileptal 300 mg oral tablet 300 mg, 1, tablet, By Mouth, 2 times a day, # 60 tablet, Refills 5, Maintenance, 05/20/23 12:27:00 EDT, Partial fill upon patient request if the prescription is for a schedule II opioid drug. Start Date: 05/20/23 Status: Ordered Wellbutrin SR 150 mg/12 hours [...] oldest [Reference Range]: 1 2 3 Height 168 cm (05/29/23 12:33 AM) Weight 90.5 kg (05/29/23 12:33 AM) Oxygen Saturation [94-100 %] 97 % (05/29/23 7:00 AM) 98 % (05/29/23 2:45 AM) 99 % (05/29/23 12:33 AM) Pulse Rate [55-90 bpm] 55 bpm (05/29/23 7:00 AM) 70 bpm (05/29/23 2:45 AM) 70 bpm (05/29/23 12:33 AM) Blood Pressure [90-138/55-84 mm Hg] 102/71mm Hg (05/29/23 7:00 AM) 137/117mm Hg (05/29/23 2:45 AM) 149/87mm Hg *H* (05/29/23 12:33 AM) Respiratory Rate [16-30 br/min] 16 br/min (05/29/23 10:12 AM) 16 br/min (05/29/23 7:00 AM) 18 br/min (05/29/23 2:45 AM) Temperature [96.8-100.4 DegF] 97.3 DegF (05/29/23 7:00 AM) 99.2 DegF (05/29/23 12:33 AM) Mode of Delivery (Oxygen) Room air (05/29/23 7:00 AM) Room air (05/29/23 2:45 AM) Room air (05/29/23 12:33 AM) Blood pressure sites Arm, left (05/29/23 12:33 AM) Temperature Route Temporal (05/29/23 7:00 AM) Temporal (05/29/23 12:33 AM) Dry Weight 90.5 kg (05/29/23 12:33 AM) Note * Lavinia JEAN BAPTISTE, Ruby: PERFORM Event Display: Patient Education Leaflets Authored Date: [id number] Physical Therapy Referral ?? 250 ?? This page is FOR PRESCRIBERS Only, ? DO NOT GIVE TO THE PATIENT? Physical Therapy Referral Program for Management of Pain In an effort to reduce narcotic use, some of our ED patients will benefit from a direct referral torab care.?? [facility] will see INSURED patients and has a system in place to avoid sending follow up paperwork to the ED prescribers.? Note: Non-[facility] physical therapy services will probably NOT be able to handle ED generated PT referrals. ?? Patients should still follow up with their PCP as soon as possible regarding their ongoing care. Inform patients that [facility] will discuss insurance when they call.?? Some insurance plans limit the amount of PT a patient can receive each year. ?? Complete the FIRST PAGE of the patient???s referral sheet. [place] or write in diagnosis Modify the timing for treatment, if needed List any major precautions (i.e.?? Non-weight bearing limb), if needed Sign, date and print your name at the bottom ? Physical Therapy Referral Form Patient Instructions: You are being referred to physical therapy.?? This form is your referral and MUST be brought to your appointment. You need to call to set up your appointment. ?? This form can be used at any [facility] location.?? A list of locations is attached.?? 1)?? DIAGNOSIS/ICD-10 ([place] one) Cervicalgia: M54.2 ? Strain of muscle, fascia and tendon at neck level: S16.1XXD? Radiculopathy, cervical region: M54.12? Mid back pain: M54.9 ? Low back pain:?? M54.5 Strain of muscle, fascia and tendon of lower back: S39.012D Radiculopathy, lumbosacral region: M54.17 Other:? 2)? [? ]? Evaluate and Treat 2 Times/Week for 4 weeks as needed [? ]?Other: 3)? [? ]? No Precautions [? ]?Precautions: ?? I hereby certify these services as medically necessary for the patient???s plan of care. Physician???s Signature Date Physician Name (printed)? Locations You can call any location below.?? Tell them you were seen in a [facility] Emergency Department and have a referral form.?? Remember to bring your referral form with you to the appointment. REDD [place] [id number]? REDD [place] [address] [address] [facility], [address]? [address] [place] [address] ? REDD [place] ? [place] [address] [place] [address]? [address] ? [place] [address]? [place] [address] [facility] [address] ? [place] [address]? [facility] [address] ? Patient Care team information Care Team Personnel Name: Not on Staff, PCP Position: [facility] Physician (General Medicine) Member Role: PCP Name: Mis Washburn RN Position: [facility] ED RN W/OE and Tasks Member Role: Patient Care Provider Name: Anthony Colin DO Position: S Resident Member Role: Admitting Physician Address: Address: [address] [place] [address] Dept [place] [address]-
--- OUTSIDE RECORDS SUMMARY | 2023-06-02 20:40 | XMS_ITS | Continuity of Care Document ---
Author Name [facility] Address [address] [place] [id number] Organization [facility] Address [address] [place] [address] Care Team Providers Care Consumer Product Advisor Name Role Phone Pcp-Noam, Primary Care Provider Mason Ro Emergency Provider Allergies, Adverse Reactions, Alerts No known allergies. [...] Problem Onset Date Status Substance abuse Active Fatigue Active Morbid obesity Active Psoriatic arthritis Active Cellulitis Active Psoriasis Active Tachycardia Active Agitation Active Homelessness Active Bipolar 1 disorder Active Multiple abrasions Active GERD (gastroesophageal reflux disease) Active Multiple contusions Active HTN (hypertension) Active Inactive/Resolved Problems Medical Problem Onset Date Status Acute kidney injury Resolved Cellulitis of right leg Inactive Toxic metabolic encephalopathy R esolved Alcoholic intoxication Inactive Alcoholic intoxication Inactive Rhabdomyolysis Resolved Viral infection Inactive Viral syndrome Inactive Allergic reaction Inactive Paranoid delusion Inactive Polysubstance abuse Inactive Procedures No known history of procedures. Relevant Diagnostic Tests and/or Laboratory Data No known relevant diagnostic tests, laboratory data, and/or discharge summary. Advance Directives Advance Directive Response Recorded Date/ Time Advance Directives No July 24, 2020 2:20pm Health Care Proxy No July 24, 2020 2:20pm Chief Complaint and Reason for Visit Encounter Admit Date Chief Complaint Reason for V isit Departed Emergency July 24, 2020 1:39pm chest emil n Hospital Discharge Instructions No known hospital discharge [...] Date Discharge/Departure Date Attending Provider Departed Emergency [facility] Emergency July 24, 2020 1:39pm July 24, 2020 5:41pm Functional Status No known functional status. Immunizations Immunization Name Date Given Type Tetanus, Diphtheria, Pertussis (Tdap) March 03 9 Administered Plan of Care Instructions You came to the emergency de partment to rest as you are exhausted from walking in the streets, unable to sleep last night due to homelessness. Your screening medical exam revealed no emergent medical conditions and so you are safe to be discharged. We advised that you go to a nearby longterm to spend the night so you may be safe and able to rest. Please return to the emergency department if you are feeling unsafe or develop any acute concerning symptoms. It was a pleasure taking care of you, please call [phone] with any questions. - Chente El PA-C Social History Query Response Date Recorded Comment Living Situation Homeless July 24, 2020 4:57p m Query Response Start Date Stop Date Smoking Status Unknown if ever smoked Vital Signs Vital Reading Result Reference Range Collection Date/Time Height 1.68 m July 24 1:50pm Weight 83.915 kg July 24 1:50pm Temperature 98 F 97.6 F-99.6 F July 24, 2020 1:50pm Pulse 88 BPM 60-90 July 24 1:50pm Respiration 18 RPM -24 Saloni 24, 2 020 1:50pm Pulse Oximetry 100 % 95-100 July 24, 2020 1:50pm Blood Pressure Systolic 128 90-140 Jul 1:50pm Blood Pressure Diastolic 79 60-90 Jul 1:50pm Body Mass Index 29.9 July 1:50pm
--- NOTE | 2023-06-02 21:04 | PC.NURSE ---
Assumed care of patient at 1900. Patient sleeping with even unlabored respirations. was arousable. PT reporting no pain. Nirav continue to follow plan of care.
[2023-06-02 23:57] VITALS: RESP 18
== END 2023-06-03 00:41 | disposition home or self-care (01) ==
PROVIDERS: Emergency Provider Internal Medicine
DX: M54.50 Low back pain, unspecified (principal)
CPT/HCPCS: 99283

== ENCOUNTER 2023-08-06 04:28 | Emergency (ER) | payer MEDICAID, SELFPAY ==
[2023-08-06 04:33] VITALS: BP 165/89; PULSE 80; O2SAT 97
[2023-08-06 04:41] VITALS: BP 137/84; PULSE 73; RESP 18; TEMP 36.9; O2SAT 100; BMI 37.1
[2023-08-06 04:47] VITALS: BP 137/84; PULSE 73; RESP 18; TEMP 36.9; O2SAT 100
--- NOTE | 2023-08-06 04:57 | PC.NURSE ---
Pt requested and given drink. UA requested, pt unable to use the bathroom at this time. Plan of care ongoing.
--- NOTE | 2023-08-06 06:11 | PC.NURSE ---
Pt denies SI/HI Pt reports has not received methadone in a couple of days. Pt reports he smokes and injects crack/cocaine. Pt describes the pain as on fire Plan of care ongoing.
--- NOTE | 2023-08-06 06:44 | ED.GENADULT ---
HPI - General Adult General Chief complaint: General Medical Stated complaint: Wrist Pain Time Seen by Provider: 08/06/23 06:40 Source: patient Mode of arrival: ambulatory Limitations: no limitations History of Present Illness HPI narrative: Patient is a 43 year old assigned male at with a history of IV drug use including cocaine and heroin presenting to the emergency department today with concern of infection to the left right, right palm, and right leg. Patient states that he has been seen for these spots before and given antibiotics but he wasn't sure when or where that was and doesn't believe he completed his course of antibiotics. Patient states that 2 days ago he had what he believes was a seizure, and hit his face near his right eye on something. Patient denies any dizziness, lightheadedness, abdominal pain, nausea, vomiting, fever, chills, blurry vision, double vision, loss of vision, chest pain, difficulty breathing, shortness of breath, back pain, night sweats, pain with urination, increased urinary frequency, increased urinary urgency, blood in his urine or stool, syncope or a near syncopal episode, bowel incontinence, bladder incontinence, bowel retention, bladder retention, or any other complaints at this time. Severity: mild Relieving factors: none Exacerbating factors: none Associated symptoms: denies other symptoms Treatments prior to arrival: none Related Data Previous Rx's Medication Instructions Recorded cephalexin 500 mg capsule 500 mg PO Q6H 7 days #28 caps 08/06/23 doxycycline hyclate 100 mg tablet 100 mg PO BID 7 days #14 tabs 08/06/23 Allergies Allergy/AdvReac Type Severity Reaction Status Date / Time No Known Allergies Allergy Verified 06/02/23 17:51 Review of Systems Constitutional: Constitutional: Reports no additional constitutional complaints, Denies chills, Denies fever(s) and Denies night sweats Eyes: Eyes: Reports no additional eye complaints, Denies blurry vision, Denies change in vision, Denies diplopia, Denies eye discharge, Denies loss of vision and Denies eye pain ENT: Denies dizziness Cardiovascular: Cardiovascular: Reports no additional cardiovascular complaints, Denies chest pain, Denies lightheadedness, Denies Loss of Consciousness and Denies dyspnea Respiratory: Respiratory: Reports no additional respiratory complaints and Denies dyspnea Gastrointestinal: Gastrointestinal: Reports no additional gastrointestinal complaints, Denies abdominal pain, Denies melena, Denies hematochezia, Denies change in bowel habits and Denies change in stool character Genitourinary: Genitourinary: Reports no additional male genitourinary complaints, Denies hematuria, Denies oliguria, Denies difficulty urinating, Denies dysuria, Denies urinary frequency, Denies urinary hesitancy, Denies urinary incontinence and Denies urinary urgency Musculoskeletal: Musculoskeletal: Reports no additional musculoskeletal complaints, Denies numbness and Denies tingling Comments: redness to the left wrist, right palm, and right calf Neurologic: Denies dizziness, Denies loss of vision, Denies numbness and Denies tingling Psychiatric: Psychiatric: Reports no additional psychiatric complaints Endocrine: Endocrine: Reports no additional endocrine complaints Hematologic/Lymphatic: Hematologic/Lymphatic: Reports no additional hematologic/lymphatic complaints Allergic/Immunologic: Allergic/Immunologic: Reports no additional allergic/immunologic complaints PMFSH Past Medical History Attestation statement: The following information was validated with the patient. Source: old records reviewed and nursing notes reviewed Social History Social History Smoked in Last 30 Days: Yes Use of substances other than those prescribed or required for medical reasons: Yes Substance Use Type: Crack/Cocaine Substance Use Frequency: Daily Advance Directives: No Advance Directives Information Provided: Yes Physical Exam ED Vital Signs: Vital Signs - 24 hr 08/06/23 04:41 08/06/23 04:47 08/06/23 07:52 Temperature 98.4 F 98.4 F 97.9 F Pulse Rate 73 73 68 Respiratory Rate 18 18 18 Blood Pressure 137/84 137/84 135/81 Pulse Oximetry 100 100 100 Oxygen Delivery Method Room Air Room Air Room Air 08/06/23 11:25 Temperature 98.3 F Pulse Rate 70 Respiratory Rate 18 Blood Pressure 118/65 Pulse Oximetry 97 Oxygen Delivery Method Room Air BMI result Body Mass Index 37.1 Const General: cooperative, no acute distress, alert and awake Nutritional Appearance: well nourished Orientation/consciousness: patient oriented x3 Limitations: no limitations HENMT Head: Yes normal to inspection and Yes atraumatic Ears: hearing grossly normal bilaterally and external ears normal General nose exam: Normal external nose present, no nasal discharge noted and no epistaxis Face and sinus: Yes normal facial exam, No abrasion and No laceration Mouth: Normal oral and palatal mucosa present, no drooling and no muffled voice Eyes Other: minimal bruising present around the right eye Eyelids: Yes eyelids normal Conjunctivae: conjunctivae normal Pupils: Equal, round and reactive pupils present EOM: EOMs intact bilaterally Neck Neck: Yes normal visual inspection, Yes full ROM and Yes no lymphadenopathy Chest Chest palpation & inspection: normal inspection of the chest Resp Effort & Inspection: normal respiratory effort and able to speak in complete sentences Auscultation: clear to auscultation bilaterally Cardio Rate: regular rate Rhythm: regular rhythm GI Inspection: Yes normal to inspection Skin Other: minimal erythema present to the left forearm, right palm, and right calf Neuro General: patient oriented x3 and moves all extremities Cranial nerves: Yes Equal, round and reactive pupils present Cognition (Neuro): normal cognition Motor exam (neuro): 5/5 motor strength present throughout Sensory Exam: Normal double simultaneous stimulation for sensation Coordination: [id number] test normal Extrem General: Yes full ROM and Yes capillary refill normal Psych Appearance: grossly normal Mental Status: mental status grossly normal Affect: normal affect Attitude: cooperative Thought process: Normal thought process present Thought content: Normal thought content present Insight: Good insight present (Psych) Medications Administered Discontinued Medications Generic Name Dose Route Start Last Admin Trade Name Freq PRN Reason Stop Dose Admin Cephalexin HCl 500 mg 08/06/23 11:08 08/06/23 11:54 Cephalexin 500 Mg Capsule PO 08/06/23 11:09 500 mg ONCE ONE Administration Doxycycline Monohydrate 100 mg 08/06/23 11:08 08/06/23 11:54 Doxycycline Monohydrate 100 Mg Capsule PO 08/06/23 11:09 100 mg ONCE ONE Administration Medical Decision Making Medical Decision Making [facility] Narrative: Patient is a 43 year old assigned male at with a history of IV drug use presenting to the emergency department today with possible cellulitis of the left forearm, right palm, and right calf and a head injury. Patient's physical exam was as noted in the physical exam portion of this note. No evidence of septic joints. No evidence of abscess in any of the areas of patient concern. Patient's ocular exam was normal aside from the exterior soft tissue bruising that appears to be in late stages of healing. Patient's blood work showed an elevated ESR of 19 and an elevated CRP of 8.06. Patient's EKG was unremarkable. Patient's head and facial CTs showed an indeterminate age nasal bone fracture, chronic right orbital floor fracture with herniation of extraconal fat through the fracture defect, and partial dehiscence of the left orbital floor secondary to old trauma. I consulted with my attending physician Dr. Eastman who recommended covering the patient with antibiotics and following up out patient with OMFS. Patient's clinical presentation is not consistent with sepsis (@1150). I explained my physical exam findings as well as all test results to the patient. I answered all questions asked by the patient. I stressed the importance of the patient taking his medication as prescribed. I stressed the importance of the patient following up with his primary care provider. I stressed the importance of the patient returning to the emergency department immediately if his symptoms were to worsen or if he were to develop any dizziness, shortness of breath, difficulty breathing, chest pain, blurry vision, loss of vision, nausea, vomiting, abdominal pain, fever, chills, back pain, or any other complaints. Patient verbalized agreement and understanding with this treatment plan and discharge. Differential Diagnosis Differential Diagnoses: The differential diagnosis associated with the presentation includes Cellulitis Orbital fracture Head injury Admission/Observation Consideration of admission/observation: Escalation of care including admission/observation considered Patient would have been admitted to the hospital had his work up had any findings where hospital admission was appropriate and his clinical presentation warranted hospital admission. Lab Data [facility] Lab Attestation statement: I reviewed the patient's lab results. My interpretation of these results are in the [facility] rationale portion of this note. 08/06/23 09:20 08/06/23 09:20 Labs: Lab Results 08/06/23 08/06/23 Range/Units 08:23 09:20 WBC 7.0 (4.8-10.8) X10*3/uL RBC 4.08 L (4.60-5.80) X10*6/uL Hgb 12.0 L (14.0-18.0) g/dl Hct 35.4 L (42.0-52.0) % MCV 86.8 (80.0-98.0) fL MCH 29.4 (27.0-33.0) pg MCHC 33.9 (31.0-36.0) g/dl RDW 11.9 (11.0-16.0) % Plt Count 231 (160-400) X10*3/uL MPV 9.1 L (9.4-12.4) fL Immature Gran % (Auto) 0.4 (0.0-0.4) % Neut % (Auto) 60.6 (45-73) % Lymph % (Auto) 22.8 (20-40) % [place] % (Auto) 11.9 H (2-11) % Eos % (Auto) 3.7 (0-4) % Baso % (Auto) 0.6 (0-2) % Lymph # (Auto) 1.6 (1.2-4.9) X10*3/uL [place] # (Auto) 0.8 (0.1-1.2) X10*3/uL Eos # (Auto) 0.3 (0.0-0.4) X10*3/uL Baso # (Auto) 0.0 (0.0-0.2) X10*3/uL Abs Immat Gran (auto) 0.03 (0.00-0.03) X10*3/uL Absolute Neuts (auto) 4.3 (2.0-8.3) x10*3/uL Absolute Nucleated RBC 0.000 (0.0-0.012) X10*3/uL Nucleated RBC % (auto) 0.0 (0.0-0.2) /100WBC ESR 19 H (0-15) MM/HR PT 13.8 H (11.1-13.3) SEC INR 1.1 (0.9-1.1) APTT 38.9 H (26.0-36.4) SEC Sodium 139 (135-145) mmol/L Potassium 3.4 (3.3-5.1) mmol/L Chloride 103 (96-108) mmol/L Carbon Dioxide 26 (22-29) mmol/L Anion Gap 13 (12-20) BUN 15 (9-16) mg/dL Creatinine 0.66 (0.5-1.4) mg/dL Estim Creat Clear Calc 166.6 Estimated GFR > 60 Random Glucose 108 (60-115) mg/dL Lactic Acid 0.6 (0.5-2.0) mmol/L Calcium 9.4 (8.4-10.2) mg/dL Magnesium 2.2 (1.6-2.6) mg/dL Total Bilirubin 0.5 (0.0-1.0) mg/dL AST 22 (5-37) U/L ALT 19 (0-40) U/L Alkaline Phosphatase 75 (39-117) U/L Total Creatine Kinase 134 (38-174) U/L Troponin I High Sens < 2.7 (<3.5-35.0) ng/L C-Reactive Protein 8.06 H (< or = 0.50) mg/dL Total Protein 6.7 (6.5-8.0) g/dL Albumin 4.0 (3.5-5.0) g/dL Influenza Type A (PCR) NEGATIVE (Negative) Influenza Type B (PCR) NEGATIVE (Negative) RSV RNA Qual (PCR) NEGATIVE (Negative) SARS-CoV-2 RNA (RT-PCR) NEGATIVE (Negative) Independent Interpretation I performed an independent interpretation of an: EKG and CT Scan Interpretation: My interpretation is in agreement with the radiologist's impression of these imaging studies. CT HEAD WITHOUT IV CONTRAST CT MAXILLOFACIAL WITHOUT IV CONTRAST INDICATION: Head trauma. COMPARISON: None available. TECHNIQUE: Multidetector CT acquisitions of the head and maxillofacial region obtained without IV contrast. Multiplanar reformats were acquired and utilized for image interpretation. This CT examination was performed using dose optimization techniques as appropriate, variously including the following: *Automated exposure control *Adjustment of mA and/or kV according to patient size (this includes techniques or standardized protocols for targeted exams where dose is matched to indication/reason for exam; i.e. extremities or head) *Use of iterative reconstruction technique FINDINGS: HEAD: There is no intracranial hemorrhage, hydrocephalus, extra-axial surface collection, midline shift, or other herniation pattern. Pichardo to white matter differentiation is diffusely maintained without evidence of an evolved acute territorial infarct. The basilar cisterns are preserved. No significant soft tissue abnormality. No acute osseous abnormality. The paranasal sinuses and the mastoid air cells are well aerated. MAXILLOFACIAL: Indeterminate age anterior nasal bone fracture that can be correlated for tenderness overlying this location. There is a probable chronic right orbital floor fracture with herniation of extraconal fat through the fracture defect. There is no soft tissue swelling adjacent to this fracture to suggest that it is acute. There is partial dehiscence of the left orbital floor which may also be the sequela of old trauma. No additional maxillofacial fractures. Elongated styloid processes bilaterally that can be correlated for clinical signs of Stockbridge syndrome. Leftward deviation of the nasal septum with a leftward directed nasal septal spur. CT/CT head/brain wo IV con IMPRESSION: - No acute intracranial findings. - Indeterminate age anterior nasal bone fracture that can be correlated for tenderness overlying this location. There is a probable chronic right orbital floor fracture with herniation of extraconal fat through the fracture defect. There is no soft tissue swelling adjacent to this fracture to suggest that it is acute. There is partial dehiscence of the left orbital floor which may also be the sequela of old trauma. No additional maxillofacial fractures. - Elongated styloid processes bilaterally that can be correlated for clinical signs of Stockbridge syndrome. Dictated By: Jose Cruz Hatch MD Signed By: Electronically signed by oJse Cruz Hatch MD 08/06/23 1003 Vent. Rate: 067 BPM Atrial Rate: 067 BPM P-R Int: 168 ms QRS Dur: 084 ms QT Int: 440 ms P-R-T Axes: 044 048 047 degrees QTc Int: 464 ms Normal sinus rhythm Normal ECG No previous ECGs available DD/ 0816 Radiology Impression Discussion of test interpretation with radiology: I have reviewed the radiologist's reading. Independent Historian Clinical information obtained from an independent historian. History obtained from or confirmed by: EMS (EMS provided additional history and confirmed the history provided by the patient.) Prescription Management I considered prescription management with: Antibiotic (patient prescribed antibiotics ) Critical Care Time Critical Care Time Critical Care Time: Yes Total Critical Care Time: 45 Attestation: I spent 45 minutes of Critical Care Time with this patient. This does not include time spent on separately reported billable procedures. Discharge Plan Discharge Clinical Impression: Cellulitis, Fracture of orbital floor Patient Disposition: Home, Self-Care Instructions: Facial Fracture (ED), Cellulitis (DC) Additional Instructions: Follow up with your primary care provider. Take your antibiotics as prescribed. Return to the emergency department immediately if your symptoms worsen or if you develop any dizziness, shortness of breath, difficulty breathing, chest pain, blurry vision, loss of vision, nausea, vomiting, abdominal pain, fever, chills, back pain, or any other complaints. Follow up with an [facility] provider: [facility] [phone] Prescriptions: New cephalexin 500 mg capsule 500 mg PO Q6H 7 Days Qty: 28 0RF doxycycline hyclate 100 mg tablet 100 mg PO BID 7 Days Qty: 14 0RF Referrals: Paula Caraballo MD [Primary Care Provider] - Stand Alone Forms: Work/School Release Interventions: ED Discharge Assessment Last Done: 08/06/23 11:59 Discharge Date/Time: 08/06/23 11:59 Print Language: Moroccan
[2023-08-06 07:52] VITALS: BP 135/81; PULSE 68; RESP 18; TEMP 36.6; O2SAT 100
--- NOTE | 2023-08-06 07:55 | PC.NURSE ---
Addendum entered by Shelley Barker 08/06/23 10:56: pt has old right eye bruising, pt states he might have had a seizure but does not remember, no previous hx of seizures Original Note: pt sleepy but easily arousable, pt is slightly warm to touch and clammy, respiratory even and unlabored, pt is homeless and uses heroin iv and cocaine last use was 08/05/23 pt injected in the multiple spots, including the left wrist area, right palm area, left calf and top of the right foot, areas a red/warm/hard and tender to touch. pt is a very hard stick this rn attempted multiple times, vasquez the tech attempted twice and another tech is attempting as well.
--- NOTE | 2023-08-06 08:53 | PC.NURSE ---
phlebotomy called for a hard stick
--- NOTE | 2023-08-06 11:00 | PC.NURSE ---
pt is currently sleeping in no apparent distress at this time
[2023-08-06 11:25] VITALS: BP 118/65; PULSE 70; RESP 18; TEMP 36.8; O2SAT 97
== END 2023-08-06 11:59 | disposition home or self-care (01) ==
PROVIDERS: Emergency Provider Emergency Medicine Emergency Medical Services; PCP Family Medicine
DX: L03.114 Cellulitis of left upper limb (principal); L03.115 Cellulitis of right lower limb; L03.113 Cellulitis of right upper limb; S02.32XA Fracture of orbital floor, left side, initial encounter for closed fracture; S02.31XA Fracture of orbital floor, right side, initial encounter for closed fracture; W19.XXXA Unspecified fall, initial encounter; F19.10 Other psychoactive substance abuse, uncomplicated; Z20.822 Contact with and (suspected) exposure to COVID-19; Z20.828 Contact with and (suspected) exposure to other viral communicable diseases; Y93.9 Activity, unspecified; Y92.9 Unspecified place or not applicable; Y99.9 Unspecified external cause status
CPT/HCPCS: 0241U; 70450; 70486; 80053; 82550; 83605; 83735; 84484; 85025; 85610; 85652; 85730; 86140; 87040; 93005; 99284

== ENCOUNTER 2023-08-08 23:43 | Emergency (ER) | payer MEDICAID, SELFPAY ==
[2023-08-09 00:29] VITALS: BP 134/88; PULSE 104; RESP 18; TEMP 36.8; O2SAT 94; BMI 37.1
--- NOTE | 2023-08-09 01:08 | MHC.EDTECH ---
Multiple blood draw attempts, difficulty due to scarring, only able to draw the CMP.
[2023-08-09 01:26] LABS: Alanine Aminotransferase 17 U/L (0-40); Albumin Level 4.1 g/dL (3.5-5.0); Alkaline Phosphatase 83 U/L (39-117); Anion Gap 18 (12-20); Aspartate Amino Transferase 23 U/L (5-37); Bilirubin Total 0.4 mg/dL (0.0-1.0); Blood Urea Nitrogen 15 mg/dL (9-16); Calcium 9.8 mg/dL (8.4-10.2); Carbon Dioxide 23 mmol/L (22-29); Chloride 101 mmol/L (96-108); Creatinine Clr Calc Pharmacy 161.8; Estimated Glomerular Filt Rate > 60; Glucose Random 118 mg/dL (60-115); Potassium 3.9 mmol/L (3.3-5.1); Sodium 138 mmol/L (135-145); Total Protein 7.3 g/dL (6.5-8.0)
--- NOTE | 2023-08-09 01:59 | PC.NURSE ---
pt reports RLE abscess; appears red/swollen/warm to touch. +pulses. pt reports IVDA in extremity; last used 1 week ago in RLE. awaiting primary eval by ed provider; call espinosa within reach.
[2023-08-09 02:09] VITALS: BP 119/70; PULSE 74; RESP 16; TEMP 36.9; O2SAT 98
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
--- NOTE | 2023-08-09 03:00 | PC.NURSE ---
awaiting pt d/c to administer po abx per Dr. Tadeo approval. pt sleeping in stretcher at this time. respirations even and unlabored. call espinosa within reach.
--- NOTE | 2023-08-09 03:01 | PC.NURSE ---
Dr. Tadeo at bedside for drainage of abscess RLE. injected lidocaine 1% to area to numb before draining. applied dressing to site. pt reports is comfortable requested food and drinks after. call espinosa within reach.
--- NOTE | 2023-08-09 03:02 | PC.NURSE ---
dr. chen aware unable to obtain cbc as pt difficult stick.
[2023-08-09 06:00] VITALS: BP 109/61; PULSE 71; RESP 16; TEMP 36.9; O2SAT 100
--- NOTE | 2023-08-09 06:29 | PC.NURSE ---
pts first dose po abx given per dec. pt educated on med compliance with abx. pt in agreement with discharge; education provided on sx to monitor and when to return.
== END 2023-08-09 08:50 | disposition home or self-care (01) ==
PROVIDERS: Emergency Provider Emergency Medicine
DX: L02.415 Cutaneous abscess of right lower limb (principal); M79.604 Pain in right leg; F14.10 Cocaine abuse, uncomplicated
CPT/HCPCS: 10060; 36415; 80053; 99283; 99284

== ENCOUNTER 2023-08-11 17:53 | Emergency (ER) | payer MEDICAID, SELFPAY ==
--- NOTE | ~2023-08-11 | XR_ITS ---
EXAMINATION: XR CHEST CLINICAL INFORMATION: Trauma. Pain. COMPARISON: None available. TECHNIQUE: 2 views of the chest were obtained. FINDINGS: The cardiomediastinal silhouette is normal. There is no focal lung consolidation or pleural effusion. The bony structures and soft tissues are unremarkable. XR/XR chest 2V IMPRESSION: No active cardiopulmonary disease.
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
[2023-08-11 18:19] VITALS: BP 141/76; PULSE 60; RESP 18; TEMP 36.7; O2SAT 100; BMI 35.6
[2023-08-11 18:34] VITALS: BP 148/108; PULSE 74; O2SAT 100
== END 2023-08-11 19:23 | disposition home or self-care (01) ==
PROVIDERS: Emergency Provider Emergency Medicine
DX: S29.9XXA Unspecified injury of thorax, initial encounter (principal); Y35.393A Legal intervention involving other blunt objects, suspect injured, initial encounter; L03.115 Cellulitis of right lower limb; Z91.148 Patient's other noncompliance with medication regimen for other reason; F19.10 Other psychoactive substance abuse, uncomplicated; Y93.89 Activity, other specified; Y92.512 Supermarket, store or market as the place of occurrence of the external cause; Y99.9 Unspecified external cause status
CPT/HCPCS: 71046; 99282; 99283

== ENCOUNTER 2023-08-16 22:10 | Emergency (ER) | payer MEDICAID, SELFPAY ==
[2023-08-16 22:12] VITALS: BP 114/71; PULSE 98; RESP 16; TEMP 38.1; O2SAT 95; BMI 34.5
--- NOTE | 2023-08-17 00:52 | ED.SKABFB ---
HPI - Skin/Abscess/Foreign Bdy General Chief complaint: Skin/Abscess/Foreign Body Stated complaint: ?infection/Seeking detox Time Seen by Provider: 08/17/23 00:45 Source: patient Mode of arrival: ambulatory Limitations: no limitations History of Present Illness HPI narrative: 43 yo male with PMH of IVDA seen here and Rx PO antibiotics for R leg cellulitis x 4 days ago now with abscess that he states is draining. He wants rehab he is refusing workup and I+D other than PO antibiotics. I explained he needs eren but he refuses. He is actively using benzo, opiates, alcohol. He is sleeping and I had to wake him up complaint: rash and abscess/boil Onset (ago): day(s) (4) Tetanus up to date: yes Location: [facility] Severity: moderate Quality: burning and aching Pain Consistency: constant Relieving factors: rest Exacerbating factors: palpation Context: recent antibiotic and IVDA Associated symptoms: fever Treatments prior to arrival: none Related Data Previous Rx's Medication Instructions Recorded cephalexin 500 mg capsule 500 mg PO Q6H 7 days #28 caps 08/06/23 doxycycline hyclate 100 mg tablet 100 mg PO BID 7 days #14 tabs 08/06/23 doxycycline hyclate 100 mg tablet 100 mg PO BID #20 tabs 08/09/23 Allergies Allergy/AdvReac Type Severity Reaction Status Date / Time No Known Allergies Allergy Verified 08/16/23 22:17 Review of Systems Review of Systems: Constitutional : pos Fever, No Chills ENT/Mouth : No sore throat, No Rhinorrhea Eyes: No Eye Pain, No Swelling, No Redness Cardiovascular : No Chest Pain, No SOB Respiratory : No Cough, No Sputum Gastrointestinal : No Nausea, No Vomiting, No Diarrhea, No abdominal Pain Genitourinary : No Dysuria, No Hematuria Musculoskeletal : No joint pain, No Myalgias, No Joint Swelling Skin : No Skin Lesions, positive skin rash Neuro : No Weakness, No Numbness, No Headache Psych : No Anxiety, No Depression Heme/Lymph: No Bruising, No Bleeding,No Lymphadenopathy Endocrine : No Polyuria, No Polydipsia All other systems reviewed and are negative PMFSH Past Medical History Attestation statement: The following information was validated with the patient. Source: old records reviewed Medical History Polysubstance abuse Social History Social History Alcohol intake: current Alcohol intake frequency: 3 or more drinks per day Alcohol type: hard liquor Smoked in Last 30 Days: Yes Use of substances other than those prescribed or required for medical reasons: Yes Substance Use Type: Heroin Substance Use Frequency: Chronic Longstanding Last Used Substance: Just Prior to Admission Advance Directives: No Advance Directives Information Provided: No Physical Exam Vital Signs: Vital Signs: Last Vital Signs Temp 98.1 F 08/17/23 01:13 Pulse 94 08/17/23 01:13 Resp 18 08/17/23 01:13 BP 136/63 08/17/23 01:13 Pulse Ox 100 08/17/23 01:13 O2 Del Method Room Air 08/17/23 01:13 BMI result Body Mass Index 34.5 Appearance: Alert. Oriented X3. No acute distress. Eyes: Pupils equal, round and reactive to light. ENT: Pharynx normal. Neck: Normal inspection. Neck supple. CVS: Normal heart rate and rhythm. Pulses normal. Respiratory: No respiratory distress. Breath sounds normal. Abdomen: Soft and nontender. Skin: Skin warm and dry. Normal skin color. Normal skin turgor. Extremities: R leg 3cm fluctuant abscess noted with mild erythema and edema no streaking up the leg compartments are soft and compressible there is a scab with scant drainage he wesly not allow me to drain the area Neuro: Oriented X 3. No motor deficit. No sensory deficit. Course Course Course Narrative: Physician observation started at 246am. Patient placed in physician observation because the patient needed more time for SUDE evaluation. At the time observation was started the patient's vitals were stable, patient is alert and oriented still no work up or I+D other than PO antibiotics, Neuro: nonfocal, CV RRR, Lungs clear Medications Administered Discontinued Medications Generic Name Dose Route Start Last Admin Trade Name Agapitoq PRN Reason Stop Dose Admin Acetaminophen 975 mg 08/17/23 00:58 08/17/23 01:12 Acetaminophen 325 Mg Tablet PO 08/17/23 00:59 975 mg ONCE ONE Administration Cephalexin HCl 500 mg 08/17/23 00:57 08/17/23 01:11 Cephalexin 500 Mg Capsule PO 08/17/23 00:58 500 mg ONCE ONE Administration Doxycycline Monohydrate 100 mg 08/17/23 00:57 08/17/23 01:12 Doxycycline Monohydrate 100 Mg Capsule PO 08/17/23 00:58 100 mg ONCE ONE Administration Lidocaine HCl 1 appl 08/17/23 00:57 08/17/23 01:11 Lidocaine 4 % Cream Kit TOPICAL 08/17/23 00:58 1 appl ONCE ONE Administration Protocol Medical Decision Making Medical Decision Making MDM Narrative: 43 yo male here with R leg cellulitis and abscess I offered workup and I+D he just wants oral medications and detox referral at this time - NV intact, compartments soft and compressible at this time medications started. Will try to talk to him again about I+D. Differential Diagnosis Differential Diagnoses: The differential diagnosis associated with the presentation includes cellulitis, abscess, polysubstance abuse Admission/Observation Consideration of admission/observation: Escalation of care including admission/observation considered observe until recovery team can see patient External Record Review External record reviewed: Inpatient record Tests considered The following testing was considered but not selected: labs but patient declines Prescription Management I considered prescription management with: Antibiotic Social Determinants Patient?s care significantly limited by Social Determinants of Health including: Inadequate housing, Alcoholism and drug addiction in family and Problems related to primary support group Discharge Plan Discharge Clinical Impression: Polysubstance abuse Cellulitis Qualifiers: Site of cellulitis: extremity Site of cellulitis of extremity: lower extremity Laterality: right Qualified Code(s): L03.115 - Cellulitis of right lower limb Patient Disposition: Still a Patient Prescriptions: No Action cephalexin 500 mg capsule 500 mg PO Q6H 7 Days Qty: 28 0RF doxycycline hyclate 100 mg tablet 100 mg PO BID 7 Days Qty: 14 0RF doxycycline hyclate 100 mg tablet 100 mg PO BID Qty: 20 0RF
[2023-08-17] MEDS: cephALEXin 500 MG CAPSULE PO ×2 (01:11→09:51)
[2023-08-17] MEDS: Lidocaine 4 % Cream KIT 1 APPL TOPICAL (01:11)
[2023-08-17] MEDS: Acetaminophen 325 MG TABLET 975 MG PO (01:12)
[2023-08-17] MEDS: Doxycycline Monohydrate 100 MG CAPSULE PO ×2 (01:12→09:50)
[2023-08-17 01:13] VITALS: BP 136/63; PULSE 94; RESP 18; TEMP 36.7; O2SAT 100
--- NOTE | 2023-08-17 02:30 | PC.NURSE ---
Pt alert and oriented. Comes from waiting room with report of abscess in right dawson. area is reddened and warm to touch. PT denies any recent injury to the area. PT reports 10/10 pain. Refusing to allow provider to drain abscess. Vss- temp 98.1, pulse +5, rr 18, bp 136/63 (86), o2- 100% RA. Pt medicated as per DEC. Call espinosa within reach. Plan of care ongoing
[2023-08-17 04:46] VITALS: BP 108/62; PULSE 94; RESP 17; TEMP 37.1; O2SAT 99
[2023-08-17 08:47] VITALS: BP 125/59; PULSE 79; RESP 16; TEMP 36.8; O2SAT 98
--- NOTE | 2023-08-17 10:00 | PC.NURSE ---
pt sleeping but easily arousable, skin pwd, respirations even and unlabored, pt states that he is looking to go to detox and that he is on methadone at a clinic in [place] but its been about a week or so since he was there. pt also has an abscess on his right lower leg, leg is swollen/red/warm to touch and tender. pt denies si/hi
--- NOTE | 2023-08-17 11:12 | MHC.RECOVSUP ---
Met with pt in ED22[facility] who is here for a skin abscess and MANUEL. Pt informs having been on MTD from a clinic in [place] but stopped taking it 7-10 days ago and since then has been using 1g of heroin intravenously every day. pt informs he has a history of OD over 10 times with the most recent being 4 days ago and is currently interested in ATS at this time. ATS bed search in process.
--- NOTE | 2023-08-17 11:18 | HE.PHANOTE ---
RE: methadone [facility] last dose 110mg on 08/04/23
[2023-08-17 12:11] VITALS: BP 123/62; PULSE 88; RESP 16; O2SAT 98
[2023-08-17] MEDS: methADONE HCl 20 MG/2 ML ORAL.CONC 40 MG PO (12:29)
== END 2023-08-17 15:27 | disposition home or self-care (01) ==
PROVIDERS: Emergency Provider Emergency Medicine Emergency Medical Services
DX: L03.115 Cellulitis of right lower limb (principal); F11.10 Opioid abuse, uncomplicated
CPT/HCPCS: 99284